=== PATIENT | female | born 1980 | race Caucasian/White ===

== ENCOUNTER 2016-05-09 16:52 | Emergency (ER) | payer SELFPAY ==
[~2016-05-09] VITALS: Ht 157.5 cm; Wt 54.0 kg
[2016-05-09 16:56] VITALS: BP 113/66; PULSE 95; RESP 20; TEMP 98.3; O2SAT 99
[2016-05-09] MEDS ORDERED: ADDE20 PO (17:10)
[2016-05-09] MEDS ORDERED: CYMB60CA PO (17:10)
[2016-05-09] MEDS ORDERED: DIAZ5 PO (17:10)
--- NOTE | 2016-05-09 17:18 | PD ---
HPI Chief Complaint: Back/ Neck Pain or Injury Time Seen by Provider: 17:18 Travel History International Travel<30 days: No Contact w/Intl Traveler<30days: No Traveled to known affect area: No History of Present Illness HPI 36-year-old female with history of C5 fusion presents to emergency department for evaluation of pain radiating from her neck to her right arm. She is concerned that something may have happened to the fusion or to the level below it. She denies any trauma. She reports no recent illnesses fever or chills. Denies IV drug use. She has not followed up with a neurosurgeon in states that she has relocated to here. Pain is a burning, tingling and she feels as though her strength is decreased. She has no other symptoms to report at this time. PFSH Past Medical History ADHD: Yes Depression: Yes Psychiatric: Yes Tetanus Vaccination: < 5 Years ?: Not LMP: 04/10/16 : 2 Para: 2 Past Surgical History Appendectomy: Yes Section: Yes Thoracic Surgery: Yes (c5 back fusion) Social History Alcohol Use: No Tobacco Use: Yes Substance Use: No Allergies-Medications (Allergen,Severity, Reaction): Coded Allergies: No Known Allergies (Unverified , 05/09/16) Reported Meds & Prescriptions Reported Meds & Active Scripts Active Medrol Dosepak (Methylprednisolone) 4 Mg Dspk 4 Mg PO DIRECTED Per Pharmacist direction Reported Adderall (Amphetamine-Dextroamphetamine) 20 Mg Tab 20 Mg PO BID Avoid late evening doses. Space doses at least 4 to 6 hours if more than once/day dosing. Cymbalta DR (Duloxetine HCl) 60 Mg Capdr 60 Mg PO DAILY Valium (Diazepam) 5 Mg Tab 5 Mg PO TID PRN Review of Systems Except as stated in HPI: all other systems reviewed are Neg Physical Exam Narrative GENERAL: Well-nourished female patient, ambulatory with a nonantalgic gait no acute distress SKIN: Warm and dry. HEAD: Atraumatic. Normocephalic. Patient holds her head tilted to the right. EYES: Pupils equal and round. No scleral icterus. No injection or drainage. ENT: No nasal bleeding or discharge. Mucous membranes pink and moist. NECK: Trachea midline. No JVD. No cervical spine tenderness. CARDIOVASCULAR: Regular rate and rhythm. No murmur appreciated. RESPIRATORY: No accessory muscle use. Clear to auscultation. Breath sounds equal bilaterally. GASTROINTESTINAL: Abdomen soft, non-tender, nondistended. Hepatic and splenic margins not palpable. MUSCULOSKELETAL: No obvious deformities. No clubbing. No cyanosis. No edema. Patient has no strength deficit bilateral upper extremities. Nelson sign is negative. NEUROLOGICAL: Awake and alert. No obvious cranial nerve deficits. Motor grossly within normal limits. Normal speech. PSYCHIATRIC: Appropriate mood and affect; insight and judgment normal. Data Data Last Documented VS Vital Signs Date Time Temp Pulse Resp B/P Pulse Ox O2 Delivery O2 Flow Rate FiO2 05/09/16 16:56 98.3 95 20 113/[address] Cerv Spine W/O Contrast (05/09/16 ) Ketorolac Inj (Toradol Inj) (05/09/16 17:30) MDM Medical Decision Making Medical Screen Exam Complete: Yes Emergency Medical Condition: Yes Medical Record Reviewed: Yes Differential Diagnosis Cervical radiculopathy versus failed fusion versus degenerative disease Narrative Course 36 year-old female presents to the emergency department for evaluation of radicular pain down the right arm. Patient appears without distress. Cervical spine is nontender. CT imaging shows evidence of previous surgery without any acute findings for the patient's symptoms. I will place the patient on a short course of oral steroids which may help with any inflammation, irritating the nerve. I have encouraged her to seek a relationship with a primary care provider and follow-up with neurosurgery. She agrees to return immediately with any acute worsening of symptoms. Diagnosis Primary Impression: Radiculopathy of cervical spine Referrals: Neurosurgeon Primary Care Physician Patient Instructions: Cervical Radiculopathy (ED), General Instructions Additional Instructions: Follow up with a primary care provider Seek neurosurgery follow up - outpt MRI may be warranted Return immediately to the ED with any acute worsening of symptoms Med/Other Pt SpecificInfo: Prescription(s) given Scripts Methylprednisolone Dosepak (Medrol Dosepak)4 Mg Dspk4 Mg PO DIRECTED #1 DSPK Ref 0 Per Pharmacist direction Prov:AnupamaLeena CLARK 05/09/16 Disposition: 01 DISCHARGE HOME Condition: Stable Leena Altman May 09, 2016 17:18
[2016-05-09] MEDS ORDERED: KETOROLAC TROMETHAMINE 60 MG/2 ML (IM) VIAL IM ONE (17:30)
--- NOTE | 2016-05-09 17:57 | RADRPT ---
EXAM DATE/TIME: 05/09/2016 17:30 [facility] COMPARISON: No previous studies available for comparison. INDICATIONS : Burning sensation in right arm today. RADIATION DOSE: 28.31 CTDIvol (mGy) MEDICAL HISTORY : None SURGICAL HISTORY : Fusion, cervical. ENCOUNTER: Initial ACUITY: 1 day PAIN SCALE: 0/10 LOCATION: Bilateral neck TECHNIQUE: Volumetric scanning of the cervical spine was performed. Multiplanar reconstructions i n the sagittal, coronal and oblique axial planes were performed. Using automated exposure control a nd adjustment of the mA and/or kV according to patient size, radiation dose was kept as low as reason ably achievable to obtain optimal diagnostic quality images. FINDINGS: The patient is status post anterior cervical fusion at C5-C6. C1 and C2 are intact. C2-C3: The bony spinal canal is normal in size. No evidence of disc bulge or herniation. The neura l foramina are bilaterally patent. C3-C4: The bony spinal canal is normal in size. No evidence of disc bulge or herniation. The neura l foramina are bilaterally patent. C4-C5: The bony spinal canal is normal in size. No evidence of disc bulge or herniation. The neura l foramina are bilaterally patent. C5-C6: Fused. Neural foramina are adequate. C6-C7: The bony spinal canal is normal in size. No evidence of disc bulge or herniation. The neura l foramina are bilaterally patent. C7-T1: The bony spinal canal is normal in size. No evidence of disc bulge or herniation. The neura l foramina are bilaterally patent. CONCLUSION: Evidence for a previous surgery. I do not see an etiology for the patient's radiculo rajendra. Jewel Rhodes MD FACR on May 09, 2016 at 17:42 Board Certified Radiologist. This report was verified electronically.
[2016-05-09] MEDS ORDERED: MEDR4PAK PO (18:01)
== END 2016-05-09 18:04 | disposition home or self-care (01) ==
LOC: NETRI 16:52
DX: M54.12 Radiculopathy, cervical region (principal); Z72.0 Tobacco use; Z98.1 Arthrodesis status; Z86.59 Personal history of other mental and behavioral disorders
CPT/HCPCS: 72125; 96372; 99283; J1885

== ENCOUNTER 2016-06-08 22:43 | Emergency (ER) | payer OTHER ==
[~2016-06-08] VITALS: Ht 157.5 cm; Wt 55.0 kg
[~2016-06-08 22:43] MED LIST: ADDE20 PO; CYMB60CA PO; DIAZ5 PO; MEDR4PAK PO
[2016-06-08 22:45] VITALS: BP 115/56; PULSE 78; RESP 16; TEMP 98.5; O2SAT 96
[2016-06-09 00:57] LABS: AUTOMATED NEUTROPHIL # 3.7 TH/MM3 (1.8-7.7); BASOPHIL % 0.4 % (0.0-2.0); EOSINOPHIL # 0.2 TH/MM3 (0-0.4); EOSINOPHIL % 2.3 % (0.0-4.0); HEMATOCRIT 34.6 % (35.0-46.0); HEMO FLAGS DIFF FINAL; LYMPH % 47.3 % (9.0-44.0); LYMPHOCYTE # 4.2 TH/MM3 (1.0-4.8); MEAN CELL VOLUME 94.8 FL (80.0-100.0); MEAN CORPUSCULAR HEMOGLOBIN 33.5 PG (27.0-34.0); MEAN CORPUSCULAR HGB CONC 35.4 % (32.0-36.0); MONO % 7.6 % (0.0-8.0); NEUT % 42.4 % (16.0-70.0); PLATELET COUNT 215 TH/MM3 (150-450); RED BLOOD COUNT 3.65 MIL/MM3 (4.00-5.30); RED CELL DISTRIBUTION WIDTH 12.6 % (11.6-17.2); WHITE BLOOD COUNT 8.8 TH/MM3 (4.0-11.0)
[2016-06-09 00:58] LABS: BACTERIA, URINE RARE /hpf; BLOOD, URINE NEG (NEG); GLUCOSE,URINE NEG (NEG); KETONE, URINE NEG (NEG); MUCUS URINE FEW /lpf (OCC); NITRITE,URINE NEG (NEG); PH, URINE 5.5 (5.0-8.5); SQUAMOUS EPITHELIAL CELL URINE 3 /hpf (0-5); URINE COLOR YELLOW (YELLW/STRAW)
[2016-06-09 00:59] LABS: COMMENT (UR) CULT NOT INDICATED; CULTURE IF INDICATED CULT NOT INDICATED
[2016-06-09 01:10] LABS: ALT (GPT) 40 U/L (10-53); ANION GAP 7 MEQ/L (5-15); AST (GOT) 19 U/L (15-37); BICARBONATE 26.2 MEQ/L (21.0-32.0); BLOOD UREA NITROGEN 11 MG/DL (7-18); CHLORIDE 104 MEQ/L (98-107); GLOMERULAR FILTRATION RATE 145 ML/MIN (>89); POTASSIUM 3.9 MEQ/L (3.5-5.1); SODIUM (NA) 137 MEQ/L (136-145)
[2016-06-09 01:26] LABS: ALKALINE PHOSPHATASE 36 U/L (45-117); BETA HCG QUANT 58098 MIU/ML (0-5); TOTAL BILIRUBIN ADULT 0.2 MG/DL (0.2-1.0)
[2016-06-09] MEDS ORDERED: PRENTAB16 PO (03:05)
[2016-06-09 03:11] VITALS: BP 103/57; PULSE 75; RESP 18; O2SAT 99
--- NOTE | 2016-06-09 03:46 | PD ---
HPI Chief Complaint: Related Problem Time Seen by Provider: 03:29 Travel History International Travel<30 days: No Contact w/Intl Traveler<30days: No Traveled to known affect area: No History of Present Illness HPI 36yo F who is 10 weeks 2 days by LMP of 03/29/16 presents to the ED with c/o suprapubic cramping today. Denies any fever, chest pain, sob, vaginal bleeding, vaginal discharge. Had some nausea and NBNB vomiting. PFSH Past Medical History ADHD: Yes Depression: Yes Diminished Hearing: No Psychiatric: Yes ?: LMP: 03/29/16 : 4 Para: 3 Past Surgical History Appendectomy: Yes Section: Yes Thoracic Surgery: Yes (c5 back fusion) Social History Alcohol Use: No Tobacco Use: Yes (3 CIGS PER DAY) Substance Use: No Allergies-Medications (Allergen,Severity, Reaction): Coded Allergies: No Known Allergies (Unverified , 06/08/16) Reported Meds & Prescriptions Reported Meds & Active Scripts Active Reported Complete 14-0.4 mg ( Vit W/ Ferrous Fumara) 1 Tab Tab 1 Tab PO DAILY Review of Systems Except as stated in HPI: all other systems reviewed are Neg Physical Exam Narrative GENERAL: 36yo F not in distress. SKIN: Warm and dry. HEAD: Atraumatic. Normocephalic. EYES: Pupils equal and round. No scleral icterus. No injection or drainage. ENT: No nasal bleeding or discharge. Mucous membranes pink and moist. NECK: Trachea midline. No JVD. CARDIOVASCULAR: Regular rate and rhythm. No murmur appreciated. RESPIRATORY: No accessory muscle use. Clear to auscultation. Breath sounds equal bilaterally. GASTROINTESTINAL: Abdomen soft, gravid. Mild suprapubic tenderness to palpation. No rebound tenderness or guarding. PELVIC: +Thick white discharge in vaginal vault. No bleeding. No CMT or adnexal tenderness bilaterally. MUSCULOSKELETAL: No obvious deformities. No clubbing. No cyanosis. No edema. NEUROLOGICAL: Awake and alert. No obvious cranial nerve deficits. Motor grossly within normal limits. Normal speech. PSYCHIATRIC: Appropriate mood and affect; insight and judgment normal. Data Data Last Documented VS Vital Signs Date Time Temp Pulse Resp B/P Pulse Ox O2 Delivery O2 Flow Rate FiO2 06/09/16 03:11 75 18 103/57 99 Room Air 06/08/16 22:45 98.5 Orders Complete Blood Count With Diff (06/09/16 00:19) Comprehensive Metabolic Panel (06/09/16 00:19) Urinalysis - C+S If Indicated (06/09/16 00:19) Beta Hcg (Quant/Titer) (06/09/16 00:19) Ed Poc Ultrasound (06/09/16 ) Gc And Chlamydia Pcr (06/09/16 04:48) Wet Prep Profile (06/09/16 04:48) Labs Laboratory Tests Test 06/09/16 06/09/16 00:29 04:50 White Blood Count 8.8 TH/MM3 Red Blood Count 3.65 MIL/MM3 Hemoglobin 12.2 GM/DL Hematocrit 34.6 % Mean Corpuscular Volume 94.8 FL Mean Corpuscular Hemoglobin 33.5 PG Mean Corpuscular Hemoglobin 35.4 % Concent Red Cell Distribution Width 12.6 % Platelet Count 215 TH/MM3 Mean Platelet Volume 7.9 FL Neutrophils (%) (Auto) 42.4 % Lymphocytes (%) (Auto) 47.3 % Monocytes (%) (Auto) 7.6 % Eosinophils (%) (Auto) 2.3 % Basophils (%) (Auto) 0.4 % Neutrophils # (Auto) 3.7 TH/MM3 Lymphocytes # (Auto) 4.2 TH/MM3 Monocytes # (Auto) 0.7 TH/MM3 Eosinophils # (Auto) 0.2 TH/MM3 Basophils # (Auto) 0.0 TH/MM3 CBC Comment DIFF FINAL Differential Comment Urine Color YELLOW Urine Turbidity CLEAR Urine pH 5.5 Urine Specific [place] 1.031 Urine Protein NEG mg/dL Urine Glucose (UA) NEG mg/dL Urine Ketones NEG mg/dL Urine Occult Blood NEG Urine Nitrite NEG Urine Bilirubin NEG Urine Urobilinogen LESS THAN 2.0 MG/DL Urine Leukocyte Esterase SMALL Urine RBC 1 /hpf Urine WBC 5 /hpf Urine Squamous Epithelial 3 /hpf Cells Urine Bacteria RARE /hpf Urine Mucus FEW /lpf Microscopic Urinalysis Comment CULT NOT INDICATED Sodium Level 137 MEQ/L Potassium Level 3.9 MEQ/L Chloride Level 104 MEQ/L Carbon Dioxide Level 26.2 MEQ/L Anion Gap 7 MEQ/L Blood Urea Nitrogen 11 MG/DL Creatinine 0.48 MG/DL Estimat Glomerular Filtration 145 ML/MIN Rate Random Glucose 76 MG/DL Calcium Level 8.3 MG/DL Total Bilirubin 0.2 MG/DL Aspartate Amino Transf 19 U/L (AST/SGOT) Alanine Aminotransferase 40 U/L (ALT/SGPT) Alkaline Phosphatase 36 U/L Total Protein 6.9 GM/DL Albumin 3.6 GM/DL Human Chorionic Gonadotropin, [address]239 MIU/ML Quant Clue Cells (Wet Prep) PRESENT Vaginal Trichomonas (Wet Prep) PRESENT Vaginal Yeast (Wet Prep) NONE SEEN MDM Medical Decision Making Medical Screen Exam Complete: Yes Emergency Medical Condition: Yes Differential Diagnosis Bacterial vaginosis vs. candidiasis vs. UTI vs. ectopic Narrative Course 36yo F with cramping in lower abdominal for 1 day. Abdominal exam is benign. Pelvic exam showed white discharge. Wet prep positive for clue cells and trichomonas. Will prescribe metronidazole. Labs reviewed, no leukocytosis. bHCG 08838. Bedside US showed IUP with +FHR. UA showed small leukocyte. WBC is only 5. Culture not indicated. Leukocyte likely from vaginal discharge. Procedures Procedure Narrative Emergency Department Pelvic ultrasound was performed with patient consent. The curvilinear probe was used in the transverse and sagittal views within the suprapubic region revealing single intrauterine . heart rate was 158bpm. Diagnosis Primary Impression: Bacterial vaginosis Patient Instructions: General Instructions Departure Forms: Tests/Procedures Additional Instructions: Please follow up with your OBGYN in 1-2 days. Please return to the ED if symptoms worsen. Med/Other Pt SpecificInfo: Prescription(s) given Scripts Acetaminophen (Acetaminophen Extra Strength)500 Mg [id number] Mg PO Q6H PRN (PAIN SCALE 1 TO 4) #20 TAB Ref 0 Prov:Arely Dunlap 06/09/16 Metronidazole 500 Mg [id number] Mg PO BID 7 Days Ref 0 Prov:Arely Dunlap 06/09/16 Disposition: DISCHARGE HOME Condition: Stable Arely Dunlap DO Jun 09, 2016 03:46
[2016-06-09] MEDS ORDERED: METR500T10 PO (05:39)
[2016-06-09] MEDS ORDERED: ACET500T36 PO (05:39)
[2016-06-09 06:44] LABS: CHLAMYDIA PCR DETECTED (NOT DETECT); NEISSERIA PCR NOT DETECTED (NOT DETECT)
== END 2016-06-09 07:03 | disposition home or self-care (01) ==
LOC: NEPC 22:43
DX: O09.521 Supervision of elderly multigravida, first trimester (principal); N76.0 Acute vaginitis; A56.8 Sexually transmitted chlamydial infection of other sites; R10.2 Pelvic and perineal pain; F17.210 Nicotine dependence, cigarettes, uncomplicated
CPT/HCPCS: 80053; 81001; 84702; 85025; 87210; 87491; 87591; 99284